=== PATIENT | female | born 1945 | race Caucasian/White ===

== ENCOUNTER 2020-12-13 00:48 | Day surgery (SDC) | payer MEDICARE, SELFPAY ==
[2020-12-08 10:11] VITALS: BMI 29.7
--- NOTE | 2020-12-12 15:50 | WPDANESEPPF ---
Anes - Initial Pre Proc Eval Procedure: Operation Date: 12/13/20 08:30 Proposed Procedures p Recentralize Right Index Extensor Tendon with Tendon Graft - Ellis Jenkins MD Date/Time: 12/12/20 15:50 Surgeon: Ellis Jenkins MD Pre Op Diagnosis: sublaxation rt index extensor tend mp joint Patient Data Age: 75 Gender: F Height: 1.52 m Weight: 69.09 kg Allergies Allergy/AdvReac Type Severity Reaction Status Date / Time nitrofurantoin AdvReac Severe FACIAL Verified 12/13/20 07:06 [From Macrobid] SWELLING Home Medications Medication Instructions Recorded Confirmed Type albuterol 90 mcg INHALATION QID PRN 12/08/20 12/13/20 History alprazolam 0.25 mg BID PRN 12/08/20 12/13/20 History famotidine [Pepcid] 40 mg PO DAILY PRN 12/08/20 12/13/20 History gabapentin 300 mg BID 12/08/20 12/13/20 History oxybutynin chloride 5 mg HS 12/08/20 12/13/20 History sertraline 100 mg QAM 12/08/20 12/13/20 History topiramate 50 mg BID 12/08/20 12/13/20 History venlafaxine 150 mg PO QAM PRN 12/08/20 12/13/20 History Patient hx anesthesia problems: none Family hx anesthesia problems: none [facility] Past Medical History Medical History (Updated 12/12/20 @ 15:51 by Shemar Sanchez MD) Anxiety Chronic GERD Depression Migraine COURTNEY (obstructive sleep apnea) Osteoarthritis Social History Social History Smoking status: Never smoker Second hand tobacco smoke exposure: No Alcohol intake: never Substance use: never Substance use type: does not use Living arrangements: with family Additional living arrangements comments: LIVES WITH DAUGHTER AND GRANDSON Spiritual care concerns: No Anes - Eval Final PreProcedure Day of Procedure 12/12/20 15:50 Patient weight: overweight Heart: regular rate and rhythm Lungs: clear to auscultation and normal air movement Airway: Mallampati scale class II Neurological: alert and oriented Last oral intake: >/= 8 hours ASA classification: II Emergent: no Anesthetic plan: proceed Anesthesia type and monitoring: general GIVS and LMA Informed Consent: The patient's anesthetic plan and its attendant risks and benefits were discussed with the patient/family/POA. Questions were solicited and answers provided to the satisfaction of the patient/family/POA.
[2020-12-13] VITALS (7 sets, daily range): BP systolic 93–120; BP diastolic 50–65; PULSE 68–79; RESP 16–21; TEMP 36.4–36.8; O2SAT 94–100
--- NOTE | 2020-12-13 06:56 | WPDHPUPDATE1 ---
History and Physical Update Update Date/Time: 12/13/20 06:56 History and Physical has been reviewed, including an updated exam of the patient. There are NO changes in the patient's condition. Risks, benefits, and alternatives have been discussed and questions answered. Patient agrees to proceed with procedure.
--- NOTE | 2020-12-13 06:57 | WPDHPUPDATE1 ---
History and Physical Update Update Date/Time: 12/13/20 06:57 History and Physical has been reviewed, including an updated exam of the patient. There are NO changes in the patient's condition. Risks, benefits, and alternatives have been discussed and questions answered. Patient agrees to proceed with procedure.
[2020-12-13] MEDS: LACTATED RINGERS 1,000 ML 30 ML IV CONT (07:36)
[2020-12-13] MEDS: LIDO 1%/EPINEPHRINE 1:100,000 50 ML VIAL 10 ML INFILTRATE (08:51)
[2020-12-13] MEDS: BACITRACIN OINTMENT 15 GM TUBE 1 APPLIC TOPICAL (09:38)
--- NOTE | 2020-12-13 10:57 | P.OPB_ITS ---
Procedure Note - Brief Procedure Note - Brief Date of procedure: 12/13/20 Pre-op diagnosis: sublaxation rt index extensor tend mp joint Post-op diagnosis: same Procedure performed: Centralization of the extensor tendons to right index finger at the MP joint with tendon graft. Anesthesia: GLMA Surgeon: Ellis Jenkins MD Bd Special Education Teacher: Robert Miranda Estimated blood loss (mL): 2 Tourniquet time (min): 60 Drains: No Packing: No Pathology: yes Complications: No immediate complications Condition: stable Disposition: PACU
--- NOTE | 2020-12-13 10:59 | P.OP_ITS ---
Procedure Note - Detailed Date of procedure: 12/13/20 Pre-op diagnosis: sublaxation rt index extensor tend mp joint Post-op diagnosis: same Procedure performed: Centralization of the right index extensor tendon at the metacarpophalangeal joint with tendon graft Description of procedure: The patient's right index finger was marked in the holding area. She was taken to the operating room and placed supine on the operating table. A time-out was held and confirmed. She was given general anesthesia with an LMA and the right upper extremity was prepped and draped in usual fashion. The digit was examined and marked for the incision. This area was infiltrated with 1% lidocaine with epinephrine. The tourniquet was inflated to 250 mmHg. The incision was made over the dorsal midline of the proximal phalanx extending onto the metacarpal. Skin flaps were elevated to both sides. The extensor tendon was well visualized including the communis and the EIP. Scarred extensor garcia on the ulnar side was released. The extensor garcia remnant s were elevated on the radial side exposing the joint capsule and the collateral ligaments. A tunnel was created beneath the collateral ligament and through the sagittal garcia from the radial aspect. A split tendon graft was harvested from the extensor tendon over the proximal phalanx. This was dissected proximally until it could be easily passed beneath the collateral ligament and looped back over the extensor tendon and onto itself. Several 4-0 Prolene sutures were placed to retain the graft. The new position of the extensor tendon reliably produced extension of this digit when pulled from the proximal aspect. Full passive flexion was also demonstrated. The tourniquet was released and the wound closed with a running 4-0 Prolene. She is placed in the soft bandage with a dorsal aluminum splint allowing interphalangeal joint range of motion but not metacarpophalangeal joint motion. She is discharged from the operating room in stable condition she was being discharged home with instructions in wound care and follow-up and a prescription for hydrocodone 5/325 10. Anesthesia: GLMA Surgeon: Ellis Jenkins MD Drain Technician: Robert dove Estimated blood loss (mL): 2 Tourniquet time (min): 60 Drains: No Packing: No Pathology: none sent Complications: No immediate complications Condition: stable Disposition: PACU
== END 2020-12-13 12:24 | disposition home or self-care (01) ==
PROVIDERS: PCP Family Medicine; Visit Provider Plastic Surgery
PROC: (CPT 26434; principal; 2020-12-13 08:30)
DX: M66.241 Spontaneous rupture of extensor tendons, right hand (principal); G47.33 Obstructive sleep apnea (adult) (pediatric); K21.9 Gastro-esophageal reflux disease without esophagitis; F41.8 Other specified anxiety disorders; M19.90 Unspecified osteoarthritis, unspecified site
CPT/HCPCS: 26434; A9270; J1100; J2250; J2370; J2405; J2704; J3010; J7120